=== PATIENT | male | born 1970 | race Caucasian/White ===

== ENCOUNTER 2016-07-22 11:40 | Emergency (ER) | payer OTHER ==
[2016-07-22] MEDS ORDERED: ONDANSETRON 4MG/2ML VIAL (J2405) IV ONE (11:45)
[2016-07-22] MEDS ORDERED: KETOROLAC 30 MG/ML VIAL (J1885) IV ONE (11:45)
[2016-07-22 12:05] LABS: BASO % 0.9 % (0.0-1.0); EOS # 0.2 K/mm3 (0.0-0.50); EOS % 3.2 % (0.0-3.0); LARGE UNSTAINED CELL # 0.1 K/mm3 (0.0-0.4); LARGE UNSTAINED CELL % 1.7 % (0.0-4.0); LYMPH # 1.7 K/mm3 (1.5-4.5); LYMPH % 30.3 % (24.0-44.0); MEAN CORPUSCULAR HEMOGLOBIN 30.1 pg (27.0-33.0); MEAN CORPUSCULAR HGB CONC 34.1 g/dl (32.0-36.5); MEAN CORPUSCULAR VOLUME 88.3 fl (80.0-96.0); MONO # 0.3 K/mm3 (0.0-0.8); MONO % 5.4 % (0.0-5.0); NEUTROPHILS # 3.4 K/mm3 (1.8-7.7); NEUTROPHILS % 58.5 % (36.0-66.0); PLATELET COUNT, AUTOMATED 282 k/mm3 (150-450); RED CELL DISTRIBUTION WIDTH 12.5 % (11.5-14.5); WHITE BLOOD COUNT 5.7 K/mm3 (4.0-10.0)
[2016-07-22 12:27] LABS: ANION GAP 7 MEQ/L (8-16); BLOOD UREA NITROGEN 15 MG/DL (7-18); CALCIUM LEVEL 9.2 MG/DL (8.5-10.1); CARBON DIOXIDE LEVEL 30 MEQ/L (21-32); CHLORIDE LEVEL 104 MEQ/L (98-107); CREATININE FOR GFR 1.16 MG/DL (0.70-1.30); GLOMERULAR FILTRATION RATE > 60.0 (>60); GLUCOSE, FASTING 120 MG/DL (70-105); POTASSIUM SERUM 3.6 MEQ/L (3.5-5.1); SODIUM LEVEL 141 MEQ/L (136-145)
--- NOTE | 2016-07-22 12:40 | REP ---
Clinical: Left flank pain. Findings: Mild acute left-sided obstructive uropathy including subtle perinephric stranding and hydroureteronephrosis is secondary to a 2.5 mm obstructing calculus in the distal left ureter (images 131 - 132). The urinary tract system is otherwise without further calculi or abnormality. Liver, spleen, pancreas, collapsed gallbladder, and bilateral adrenal glands are normal. The enteric system is without obstruction or acute inflammatory process. Normal terminal ileum and appendix identified in the right lower quadrant. Pelvis demonstrates age appropriate prostate/seminal vesicles. No ascites. No adenopathy. Lung bases clear. Impression: Mild acute left-sided obstructive uropathy with a 2.5 mm obstructing calculus in the distal left ureter. No further urinary tract calcifications or abnormality noted. Signed by Serafin Woods MD 07/22/2016 12:32 P
[2016-07-22] MEDS ORDERED: ONDA4TAB6 PO (14:03)
[2016-07-22] MEDS ORDERED: FLOM5CAP PO (14:03)
[2016-07-22] MEDS ORDERED: OXYC1TAB23 PO (14:03)
[2016-07-22 14:22] VITALS: BP 128/73
[2016-07-25] MEDS ORDERED: REGL10TA6 PO (05:13)
[2016-07-25] MEDS ORDERED: KETO10TAB PO (05:13)
== END 2016-07-22 14:37 | disposition home or self-care (01) ==
LOC: M ED 13:52
DX: N20.1 Calculus of ureter (principal); N13.9 Obstructive and reflux uropathy, unspecified
CPT/HCPCS: 74176; 80048; 81001; 85025; 93041; 96374; 96375; 99284; J1885; J2405

== ENCOUNTER 2016-08-01 06:31 | Emergency (ER) | payer OTHER ==
[~2016-08-01] VITALS: Ht 180.3 cm; Wt 88.5 kg
[~2016-08-01 06:31] MED LIST: FLOM5CAP PO; KETO10TAB PO; ONDA4TAB6 PO; OXYC1TAB23 PO; REGL10TA6 PO
[2016-08-01] MEDS ORDERED: KETOROLAC 30 MG/ML VIAL (J1885) IV ONE (06:45)
[2016-08-01 06:51] VITALS: BP 135/75
== END 2016-08-01 06:58 | disposition home or self-care (01) ==
LOC: M ED 06:49
DX: N20.1 Calculus of ureter (principal); Z88.0 Allergy status to penicillin; Z79.899 Other long term (current) drug therapy
CPT/HCPCS: 96374; 99283; J1885